=== PATIENT | female | born 1945 ===

== ENCOUNTER 2023-01-22 05:37 | Day surgery (SDC) | payer OTHER ==
[~2023-01-22] VITALS: Ht 160 cm; Wt 77.1 kg
== END 2023-01-22 12:40 | disposition home or self-care (01) ==
LOC: CIR.AMB 05:37
PROVIDERS: ATTEND Otolaryngology Otology & Neurotology
DX: H66.92 Otitis media, unspecified, left ear (principal); H72.92 Unspecified perforation of tympanic membrane, left ear; D68.9 Coagulation defect, unspecified; Z20.822 Contact with and (suspected) exposure to COVID-19; Z88.0 Allergy status to penicillin; Z88.2 Allergy status to sulfonamides; E78.5 Hyperlipidemia, unspecified; R00.1 Bradycardia, unspecified